=== PATIENT | female | born 1975 | race Caucasian/White ===

== ENCOUNTER 2022-08-22 12:53 | Emergency (ER) | payer MEDICAID, OTHER, SELFPAY ==
--- NOTE | 2022-08-22 13:42 | ED.GENADULT ---
HPI - General Adult General Chief complaint: Allergic Reaction Stated complaint: rash quest allergic reaction Time Seen by Provider: 08/22/22 13:55 Source: patient and licensed life and health agent Mode of arrival: ambulatory Limitations: language barrier (Aspnet Developer used) History of Present Illness HPI narrative: This is a 47-year-old female, with no known past medical history, presenting to the emergency department for evaluation of itchy rash, arms and back x1 month. Patient states that she has tried changing lotions, soaps, laundry detergents without any relief. She states that the itching worsens at night. Denies any new medications or foods. Denies any difficulty breathing or swallowing. No fevers, chills, chest pain, abdominal pain, nausea, vomiting, or diarrhea. No other complaints or concerns at this time. MD complaint: Rash Onset (ago): month(s) Relieving factors: none Exacerbating factors: none Associated symptoms: rash Treatments prior to arrival: none Related Data Previous Rx's Medication Instructions Recorded diphenhydramine HCl 25 mg capsule 25 mg PO BEDTIME PRN itching #10 08/22/22 (Benadryl) caps hydrocortisone 1 % lotion 1 appl topical BID PRN itching 08/22/22 (Cortisone (hydrocortisone)) #120 mL prednisone 20 mg tablet 20 mg PO DAILY 5 days #5 tabs 08/22/22 Allergies Allergy/AdvReac Type Severity Reaction Status Date / Time pork derived (porcine) Allergy Rash Verified 08/22/22 13:57 Pork/Porcine Containing Allergy Rash Verified 08/22/22 13:57 Products shrimp Allergy Rash Verified 08/22/22 13:57 Review of Systems Review of Systems: Yes all other systems are reviewed and are negative Constitutional: Constitutional: Reports as per [facility] Social History Social History Advance Directives: No Advance Directives Information Provided: No Physical Exam ED Vital Signs: Vital Signs - 24 hr 08/22/22 13:55 Pulse Rate 70 Respiratory Rate 18 Blood Pressure 118/68 Pulse Oximetry 100 Oxygen Delivery Method Room Air BMI result Body Mass Index 23.9 Const General: cooperative, comfortable and no acute distress Orientation/consciousness: patient oriented x3 Limitations: no limitations HENMT Head: Yes normal to inspection, Yes normocephalic and Yes atraumatic Ears: hearing grossly normal bilaterally General nose exam: Normal external nose present Face and sinus: Yes normal facial exam Mouth: Normal oral and palatal mucosa present, oropharynx normal and moist mucous membranes Throat: Yes posterior oropharynx normal Eyes General: appearance normal, both eyes and all related structures Eyelids: Yes eyelids normal Conjunctivae: conjunctivae normal Sclerae: sclerae normal Pupils: Equal, round and reactive pupils present EOM: EOMs intact bilaterally Neck Neck: Yes normal visual inspection, Yes full ROM and Yes no lymphadenopathy Lymphatic: no lymphadenopathy noted Chest Chest palpation & inspection: normal inspection of the chest Resp Effort & Inspection: normal respiratory effort and able to speak in complete sentences Auscultation: clear to auscultation bilaterally, no crackles, no rales, no rhonchi and no wheezes Cardio Rate: regular rate Rhythm: regular rhythm Heart sounds: S1 normal heart sound present and S2 normal heart sound present GI Inspection: Yes normal to inspection Skin Other: Dry skin with multiple papules and wheals with excoriations noted to bilateral arms and back. No surrounding erythema, induration, or warmth. Trauma: no lacerations or abrasions Wounds: no wounds Neuro General: patient oriented x3 and moves all extremities Cranial nerves: Yes Equal, round and reactive pupils present Extrem General: Yes normal to inspection Right upper extremity: normal to inspection Left upper extremity: normal to inspection Right lower extremity: normal to inspection Left lower extremity: normal to inspection Course Course Course Narrative: RME: 39 yo female w/ no sig PMHx, c/o diffuse skin rash and itching x4 weeks. Admits similar rash as a child in [facility]. Has tried Benadryl, Claritin and Sarna lotion at home without relief. No changes to foods/ detergents/ lotions. Appears psoriasis/ dermatitis. Will need full eval. Full HPI, ROS and PE to be performed by primary ED provider. Medical Decision Making Medical Decision Making MDM Narrative: This is a 47-year-old female presenting to the emergency department for evaluation of itchy rash x1 month. On examination, patient has dry skin, papules and scattered wheals noted to bilateral arms and upper back. No surrounding erythema or warmth. Symptoms consistent with dry skin/allergic dermatitis. Advised to apply hydrating lotion to arms, also given cortisone lotion and prednisone. Educated the importance of returning if any new or worsening symptoms occur. Patient understands and agrees with plan. Vital signs within normal limits. Lungs clear to auscultation bilaterally, no rash noted to the mouth, tolerating oral secretions well without difficulty. Patient stable for discharge. Differential Diagnosis Differential Diagnoses: The differential diagnosis associated with the presentation includes Contact dermatitis, allergic dermatitis, atopic dermatitis, cellulitis Discharge Plan Discharge Clinical Impression: Contact dermatitis and eczema Patient Disposition: Home, Self-Care Instructions: Contact Dermatitis (ED) Additional Instructions: Please take prescribed medications as directed. Please be aware that Benadryl can cause sleepiness, take this at bedtime as needed for itching. It does appear that your skin is very dry, make sure that you are using a very sensitive and hydrating lotion such as Eucerin. If any new or worsening symptoms occur including but not limited to worsening itching, difficulty swallowing or breathing, please return for re-evaluation. Follow up with primary care physician (call [facility]). If your symptoms persist, you may follow up with the snack foods mixer operator, call to make an appointment. [place] los medicamentos recetados seg?n las indicaciones. Tenga en cuenta que Benadryl puede causar somnolencia, t?funez a la hora de acostarse seg?n sea necesario para la picaz?n. Parece que tu piel est? muy seca, aseg?rate de estar usando connie loci?n muy sensible e hidratante opal Eucerin. Si se presentan s?ntomas nuevos o que empeoran, incluidos, entre otros, el empeoramiento de la picaz?n, la dificultad para tragar o respirar, regrese para connie nueva evaluaci?n. [place] un seguimiento con un m?dico de atenci?n primaria (llame al [facility]). Si pal s?ntomas persisten, ?lla puede hacer un seguimiento con el alerg?logo, llame para hacer connie nicanor. Prescriptions: New prednisone 20 mg tablet 20 mg PO DAILY 5 Days Qty: 5 0RF hydrocortisone [Cortisone (hydrocortisone)] 1 % lotion 1 appl topical BID PRN (Reason: itching) Qty: 120 0RF diphenhydramine HCl [Benadryl] 25 mg capsule 25 mg PO BEDTIME PRN (Reason: itching) Qty: 10 0RF Referrals: Rosalinda Mason MD [Physician] -
[2022-08-22 13:55] VITALS: BP 118/68; PULSE 70; RESP 18; O2SAT 100; BMI 23.9
== END 2022-08-22 15:43 | disposition home or self-care (01) ==
PROVIDERS: Emergency Provider Emergency Medicine
DX: L50.0 Allergic urticaria (principal); Z79.899 Other long term (current) drug therapy
CPT/HCPCS: 99282; 99283

== ENCOUNTER 2022-10-14 15:44 | Outpatient (AMB) | payer OTHER, SELFPAY ==
[2022-10-14 15:47] VITALS: BP 110/68; PULSE 67; O2SAT 99; BMI 24.0
--- NOTE | 2022-10-14 15:47 | MHC.PC.OV ---
Vital Signs 10/14/22 15:47 Height 5 ft 4 in Weight 140 lb BMI 24.0 BP 110/68 Blood Pressure Location Lt brachial Position Sitting Pulse 67 Pulse Source Pulse Oximeter Temp Source Skin Pulse Oximetry (%) 99 Oxygen Delivery Method Room Air Intake Visit Reasons: New Patient Intake Note: Patient is a new patient here to establish care Follow Up Clerk Required: Yes Follow Up Clerk Language: Estonian Allergies pork derived (porcine) Allergy (Verified 10/14/22 16:25) Rash Pork/Porcine Containing Products Allergy (Verified 10/14/22 16:25) Rash shrimp Allergy (Verified 10/14/22 16:25) Rash Medication List - Last Reconciled 10/14/22 by TEJAS Abdul No Known Home Meds Tobacco use date assessed: 10/14/22 Dental Screening Dental Screen Date: 10/14/22 Did you have a dental visit in the last 12 months?: No Did you have a dental problem in the last 6 months where you did not have access to dental care?: No HPI New Patient HPI Details Patient is a 47-year-old female who presents today to establish care. Patient moved to [facility] from [facility] recently where she had PCP. Medical history significant for seasonal allergies - reports was seeing mounted police officer and receiving treatment. Patient requested referral for an eye exam. Patient reports that she started with rash couple months ago - she thinks it is after going into the [facility]. Patient was seen in the emergency department couple months ago and she was started on prednisone and steroidal cream with improvement in rash, although when patient finished treatment rash came back again. She reports rash is itchy, reports rash on her right leg and left arm. No shortness of breath or chest pain. No fever or chills. Was thinking rash was caused by her shampoo or body wash, reports switching brands still with this rash. Patient is a Estonian-speaking and [employer] was helping with interpretation. [facility] Medical History Hematoma Family History Mother No problems noted. Father Diabetes Social History Housing: House Patient Tobacco Use Status: Never used Tobacco service: No Current occupational status: unemployed Cognitive needs: No Hearing needs: No Vision needs: No Questionnaire PHQ-9 Over the last 2 weeks, how often have you been bothered by any of the following problems? 1. Little interest or pleasure in doing things: not at all 2. Feeling down, depressed, or hopeless: not at all 3. Trouble falling or staying asleep, or sleeping too much: not at all 4. Feeling tired or having little energy: not at all 5. Poor appetite or overeating: not at all 6. Feeling bad about yourself - or that you are a failure or have let yourself or your family down: not at all 7. Trouble concentrating on things, such as reading the newspaper or watching television: not at all 8. Moving or speaking so slowly that other people could have noticed. Or the opposite - being so fidgety or restless that you have been moving around a lot more than usual: not at all 9. Thoughts that you would be better off or of hurting yourself in some way: not at all Total score: 0 Depression Screening Interpretation: Negative 08960 - PHQ-9 Billing: Yes Source: Developed by Drs. Oswald Rivera, Archana Lopez, Bassem Wen and colleagues, with an educational shanika from [employer]. Thrive Questionnaire Date Thrive assessed: 10/14/22 I am a: Patient What is your living situation today?: I have a steady place to live Within the past 12 months, did the food you bought not last and you didn't have the money to get more?: Never true Within the past 12 months, did you worry whether your food would run out before you got money to buy more?: Never true Do you have trouble paying for medicines?: No Do you have trouble getting transportation to medical appointments?: No Do you have trouble paying your heating and electricity bill?: No Do you have trouble taking care of your child, family member or friend?: No Do you have trouble with day-to-day activities such as bathing, preparing meals, shopping, managing finances, etc.?: No Are you currently unemployed and looking for a job?: No Are you interested in more education?: No Currently or been in a relationship where the following occur: no concerns reported AUDIT C Alcohol Use Questionnaire (AUDIT-C) 1. How often do you have a drink containing alcohol?: Never 3. How often do you have six or more drinks on one occasion?: Never Total Score: 0 Score Reviewed/Action Taken: No MIGNON-7 AMB Questionnaire MIGNON-7 Date MIGNON - 7 assessed: 10/14/22 Feeling nervous, anxious, or on edge: 0 = Not at all Not being able to stop or control worryin = Not at all Worrying too much about different things: 0 = Not at all Trouble relaxin = Not at all Being so restless that it is hard to sit still: 0 = Not at all Becoming easily annoyed or irritable: 0 = Not at all Feeling afraid as if something awful might happen: 0 = Not at all Total MIGNON-7 score (0-4 normal; 5-9 mild; 10-14 moderate; 15-21 severe): 0 Source: Developed by Drs. Oswald Rivera, Archana Lopez, Bassem Wen and colleagues, with an educational shanika from [employer]. MIGNON-7 Assessment Billing MIGNON-7 Assessment Tool: MIGNON-7 Assessment 94704 Review of Systems Const Denies body aches, Denies chills, Denies fever(s) and Denies headache(s) Eyes Denies change in vision ENT Denies dizziness, Denies otalgia, Denies headache(s), Denies nasal discharge, Denies sinus pain and Denies sore throat Card Denies chest pain, Denies edema, Denies lightheadedness and Denies dyspnea Resp Denies cough, Denies dyspnea and Denies wheezing GI Denies abdominal pain, Denies constipation, Denies diarrhea, Denies nausea and Denies vomiting Denies dysuria Musc Denies myalgias Skin/Breast Reports rash Neuro Denies dizziness and Denies headache(s) Aller/Immun Denies wheezing Physical exam (Primary Care) Vital Signs: Last Vital Signs Pulse 67 10/14/22 15:47 BP 110/68 10/14/22 15:47 Pulse Ox 99 10/14/22 15:47 Oxygen Delivery Method Room Air 10/14/22 15:47 BMI result Body Mass Index 24.0 Tobacco/Smoking Status: Tobacco use Status Tobacco use date assessed 10/14/22 10/14/22 15:48 Patient Tobacco Use Status Never used Tobacco 10/14/22 16:19 PHQ-9: PHQ-9 Score PHQ-9: Total score 0 10/14/22 16:19 Depression Screening Interpretation: Negative Thrive Assessment: Date of Thrive Assessment Date Thrive assessed 10/14/22 10/14/22 15:48 Currently or been in a relationship where the following occur: no concerns reported Const General: cooperative and no acute distress Orientation/consciousness: patient oriented x3 HENMT Head: Yes normocephalic and Yes atraumatic Ears: TM's normal bilaterally Face and sinus: Yes sinuses nontender Mouth: oropharynx normal and moist mucous membranes Throat: Yes posterior oropharynx normal Eyes General: appearance normal, both eyes and all related structures Pupils: Equal, round and reactive pupils present EOM: EOMs intact bilaterally Neck Neck: Yes normal visual inspection, Yes full ROM and Yes no lymphadenopathy Thyroid: Thyroid normal Resp Effort & Inspection: normal respiratory effort and able to speak in complete sentences Auscultation: clear to auscultation bilaterally, no crackles, no rales, no rhonchi and no wheezes Cardio Rate: regular rate Rhythm: regular rhythm Heart sounds: S1 normal heart sound present, S2 normal heart sound present and no murmurs GI Palpation (GI): Soft to palpation, not firm, nontender, no guarding, not rigid and no hepatosplenomegaly Auscultation: normal bowel sounds General: No CVA tenderness Back/Spine/Pelvis Back: No CVA tenderness Skin Other: Right inner thigh and left AC arm with moderate amount of circular erythematous areas, patient reports pruritus, no signs of infection noted, rash with mild dryness Neuro General: patient oriented x3 Cranial nerves: Yes Equal, round and reactive pupils present Gait exam (Neuro): Normal gait present Extrem General: Yes full ROM and No edema Assessment and Plan Assessment & Plan (1) Eye exam, routine: Code(s): Z01.00 - Encounter for examination of eyes and vision without abnormal findings (2) Seasonal allergies: Code(s): J30.2 - Other seasonal allergic rhinitis Plan: Start Zyrtec 10 mg daily p.r.n. Lapper referral-patient reports receiving treatment from mounted police officer in the past (3) Encounter to establish care: Code(s): Z76.89 - Persons encountering health services in other specified circumstances Plan: Patient presents to establish care Blood work ordered (4) Rash: Code(s): R21 - Rash and other nonspecific skin eruption Plan: Right inner thigh and left AC arm with moderate amount of circular erythematous areas, patient reports pruritus, no signs of infection noted, rash with mild dryness Start prednisone taper and triamcinolone cream daily for 2 weeks - do not use cream on face Notify office if no improvement after treatment Lapper referral Plan Follow-up in 4 months for PE and labs Orders: Orders Vitamin D 25-OH Total Today Z - Persons encountering health services in other specified circumstances Vitamin B12 and Folate Today Z - Persons encountering health services in other specified circumstances TSH reflex Free T4 Today - Persons encountering health services in other specified circumstances Lipid Panel Today - Persons encountering health services in other specified circumstances Comprehensive [place]. Panel Fast Today - Persons encountering health services in other specified circumstances Complete Blood Count Auto Diff Today - Persons encountering health services in other specified circumstances Referrals Allergy & Immunology Referral J30.2 - Other seasonal allergic rhinitis, R21 - Rash and other nonspecific skin eruption Ophthalmology Referral Z01.00 - Encounter for examination of eyes and vision without abnormal findings Medications: New cetirizine (Zyrtec) 10 mg PO DAILY PRN 30 tabs 0RF allergy symptoms J30.2 - Other seasonal allergic rhinitis prednisone Take 4 tablets for 3 days then, Take 3 tablets for 3 days then, Take 2 tablets 3 days then, Take 1 tablet 3 days and stop 10 mg PO DAILY 30 tabs 0RF R21 - Rash and other nonspecific skin eruption triamcinolone acetonide 0.1% 1 appl topical DAILY 14 days 15 grams 0RF R21 - Rash and other nonspecific skin eruption Coding Level of Care Code New Pt Level 3 (25626) Diagnoses Eye exam, routine Z01.00 Seasonal allergies J30.2 Encounter to establish care Z76. Rash R21 Additional Codes MIGNON-7 Assessment Billing - MIGNON-7 Assessment Tool: MIGNON-7 Assessment 29486 ([id number])
== END 2022-10-14 16:59 | disposition home or self-care (01) ==
PROVIDERS: Visit Provider Nurse Practitioner Family
DX: Z01.00 Encounter for examination of eyes and vision without abnormal findings (principal); J30.2 Other seasonal allergic rhinitis; Z76.89 Persons encountering health services in other specified circumstances; R21 Rash and other nonspecific skin eruption
CPT/HCPCS: 99203

== ENCOUNTER 2022-10-18 10:37 | Outpatient (REF) | payer MEDICAID, OTHER, SELFPAY ==
[2022-10-18 10:50] LABS: MANUAL DIFF FLAG NO
[2022-10-18 10:56] LABS: Basophils Absolute Auto 0.1 X10*3/uL (0.0-0.2); Basophils Percent Auto 0.5 % (0-2); Eosinophils Absolute Auto 0.3 X10*3/uL (0.0-0.4); Eosinophils Percent Auto 2.8 % (0-4); Hematocrit 34.3 % (37.0-47.0); Hemoglobin 11.2 g/dl (12.0-16.0); Imm Gran Abs Auto 0.04 X10*3/uL (0.00-0.03); Imm Gran Pct Auto 0.4 % (0.0-0.4); Lymphocytes Absolute Auto 4.1 X10*3/uL (1.2-4.9); Lymphocytes Percent Auto 43.3 % (20-40); Mean Corpuscular HGB Conc 32.7 g/dl (31.0-35.0); Mean Corpuscular Hemoglobin 27.2 pg (27.0-33.0); Mean Corpuscular Volume 83.3 fL (80.0-98.0); Mean Platelet Volume 9.2 fL (9.4-12.3); Monocytes Absolute Auto 0.6 X10*3/uL (0.1-1.2); Monocytes Percent Auto 6.4 % (2-11); Neutrophils Absolute Auto 4.4 x10*3/uL (2.0-8.3); Neutrophils Percent Auto 46.6 % (45-73); Platelet Count 326 X10*3/uL (160-400); Red Blood Count 4.12 X10*6/uL (4.20-5.50); Red Cell Distribution Width 15.3 % (11.0-16.0); White Blood Count 9.4 X10*3/uL (4.8-10.8)
[2022-10-18 11:47] LABS: Alanine Aminotransferase 11 U/L (0-31); Albumin Level 4.2 g/dL (3.5-5.0); Alkaline Phosphatase 63 U/L (39-117); Anion Gap 11 (12-20); Aspartate Amino Transferase 12 U/L (5-31); Bilirubin Total 0.5 mg/dL (0.0-1.0); Blood Urea Nitrogen 13 mg/dL (9-16); Calcium 9.1 mg/dL (8.4-10.2); Carbon Dioxide 28 mmol/L (22-29); Chloride 105 mmol/L (96-108); Cholesterol 207 mg/dL (<200); Estimated Glomerular Filt Rate > 60; Glucose Fasting 80 mg/dL (60-99); HDL Cholesterol 49 mg/dL (>40); LDL Cholesterol Calculated 126 mg/dL (<100); Potassium 3.4 mmol/L (3.3-5.1); Sodium 141 mmol/L (135-145); Total Protein 7.5 g/dL (6.5-8.0); Triglycerides 161 mg/dL (<150)
[2022-10-18 12:04] LABS: TSH reflex Free T4 2.96 uIU/mL (0.32-4.0); Vitamin D 25-OH Total 25.6 ng/mL (>30)
[2022-10-18 12:39] LABS: Folate 13.9 ng/mL (> or = 4.0); Vitamin B12 504 pg/mL (200-900)
== END 2022-10-18 10:38 | disposition home or self-care (01) ==
LOC: HO.LAB 10:37
PROVIDERS: Visit Provider Nurse Practitioner Family
DX: Z76.89 Persons encountering health services in other specified circumstances (principal)
CPT/HCPCS: 36415; 80053; 80061; 82306; 82607; 82746; 84443; 85025

== ENCOUNTER 2023-02-16 13:08 | Outpatient (AMB) | payer OTHER, SELFPAY ==
--- NOTE | 2023-02-16 13:18 | MHC.PC.OV ---
Vital Signs 02/16/23 13:23 Height 5 ft 4 in Weight 143 lb 2 oz BMI 24.6 BP 120/66 Blood Pressure Location Lt brachial Position Sitting Pulse 98 Pulse Source Pulse Oximeter Pulse Oximetry (%) 99 Oxygen Delivery Method Room Air Intake Visit Reasons: pe Intake Note: Patient is here today for a physical. Demolition Engineer Required: Yes Demolition Engineer Language: Community Relations Police Lieutenant Name: Raudel ([id number]) Information Interpreted: non-clinical & clinical Piano Mover: Not Required per policy Accompanied by: Self / Same As Patient Allergies pork derived (porcine) Allergy (Verified 02/16/23 14:06) Rash Pork/Porcine Containing Products Allergy (Verified 02/16/23 14:06) Rash shrimp Allergy (Verified 02/16/23 14:06) Rash Medication List - Last Reconciled 02/16/23 by Kg Francis MD cetirizine (Zyrtec) 10 mg PO DAILY PRN cholecalciferol (vitamin D3) 25 mcg PO DAILY Tobacco use date assessed: 02/16/23 Dental Screening Dental Screen Date: 02/16/23 Did you have a dental visit in the last 12 months?: No Did you have a dental problem in the last 6 months where you did not have access to dental care?: No Was dental information given to patient?: Patient declined HPI pe HPI Details 47-year-old female presents to the office requesting a physical. Patient speaks Persian only and an customer service cashier via the iPad was used. [facility] Medical History Hematoma Surgical History History of tubal ligation Family History Mother No problems noted. Father Diabetes Social History Housing: House Alcohol intake: never Patient Tobacco Use Status: Never used Tobacco e-Cigarette/Vaping Use: Never Used Second Hand Smoke Exposure: No service: No Current occupational status: unemployed Cognitive needs: No Hearing needs: No Vision needs: No Questionnaire PHQ-9 Over the last 2 weeks, how often have you been bothered by any of the following problems? 1. Little interest or pleasure in doing things: not at all 2. Feeling down, depressed, or hopeless: not at all 3. Trouble falling or staying asleep, or sleeping too much: not at all 4. Feeling tired or having little energy: not at all 5. Poor appetite or overeating: not at all 6. Feeling bad about yourself - or that you are a failure or have let yourself or your family down: not at all 7. Trouble concentrating on things, such as reading the newspaper or watching television: not at all 8. Moving or speaking so slowly that other people could have noticed. Or the opposite - being so fidgety or restless that you have been moving around a lot more than usual: not at all 9. Thoughts that you would be better off or of hurting yourself in some way: not at all Total score: 0 Depression Screening Interpretation: Negative Depression Screening Done: Yes Source: Developed by Drs. Oswald Rivera, Archana Lopez, Bassem Wen and colleagues, with an educational shanika from [employer]. Thrive Questionnaire Date Thrive assessed: 02/16/23 I am a: Patient What is your living situation today?: I have a steady place to live Within the past 12 months, did the food you bought not last and you didn't have the money to get more?: Never true Within the past 12 months, did you worry whether your food would run out before you got money to buy more?: Never true Do you have trouble paying for medicines?: No Do you have trouble getting transportation to medical appointments?: No Do you have trouble paying your heating and electricity bill?: No Do you have trouble taking care of your child, family member or friend?: No Do you have trouble with day-to-day activities such as bathing, preparing meals, shopping, managing finances, etc.?: No Are you currently unemployed and looking for a job?: No Are you interested in more education?: No Currently or been in a relationship where the following occur: no concerns reported AUDIT C Alcohol Use Questionnaire (AUDIT-C) 1. How often do you have a drink containing alcohol?: Never Total Score: 0 MIGNON-7 AMB Questionnaire MIGNON-7 Date MIGNON - 7 assessed: 02/16/23 Feeling nervous, anxious, or on edge: 0 = Not at all Not being able to stop or control worryin = Not at all Worrying too much about different things: 0 = Not at all Trouble relaxin = Not at all Being so restless that it is hard to sit still: 0 = Not at all Becoming easily annoyed or irritable: 0 = Not at all Feeling afraid as if something awful might happen: 0 = Not at all Total MIGNON-7 score (0-4 normal; 5-9 mild; 10-14 moderate; 15-21 severe): 0 Source: Developed by Drs. Oswald Rivera, Archana Lopez, Bassem Wen and colleagues, with an educational shanika from [employer]. Physical exam (Primary Care) Vital Signs: Last Vital Signs Pulse 98 02/16/23 13:23 BP 120/66 02/16/23 13:23 Pulse Ox 99 02/16/23 13:23 Oxygen Delivery Method Room Air 02/16/23 13:23 BMI result Body Mass Index 24.6 Tobacco/Smoking Status: Tobacco use Status Tobacco use date assessed 02/16/23 02/16/23 13:34 Patient Tobacco Use Status Never used Tobacco 02/16/23 13:34 e-Cigarette/Vaping Use Never Used 02/16/23 13:34 PHQ-9: PHQ-9 Score PHQ-9: Total score 0 02/16/23 13:34 Depression Screening Interpretation: Negative Thrive Assessment: Date of Thrive Assessment Date Thrive assessed 02/16/23 02/16/23 13:34 Currently or been in a relationship where the following occur: no concerns reported Const General: cooperative and healthy appearing Nutritional Appearance: well nourished Orientation/consciousness: patient oriented x3 Limitations: no limitations HENMT Head: Yes normal to inspection Eyes General: appearance normal, both eyes and all related structures Neck Neck: Yes normal visual inspection Chest Chest palpation & inspection: normal palpation of entire chest wall Resp Effort & Inspection: normal respiratory effort Neuro General: patient oriented x3 Assessment and Plan Assessment & Plan (1) Annual physical exam: Code(s): Z00.00 - Encounter for general adult medical examination without abnormal findings Plan: Blood work reviewed. Mild anemia. TSH is normal. Up-to-date on her mammogram. Coding Level of Care Code Est Pt Prev Care 40-64y(32034) Diagnoses Annual physical exam Z00.00
[2023-02-16 13:23] VITALS: BP 120/66; PULSE 98; O2SAT 99; BMI 24.6
== END 2023-02-16 13:57 | disposition home or self-care (01) ==
PROVIDERS: PCP Internal Medicine; Visit Provider Internal Medicine
DX: Z00.00 Encounter for general adult medical examination without abnormal findings (principal)
CPT/HCPCS: 99396

== ENCOUNTER 2023-03-16 09:27 | Outpatient (REF) | payer MEDICAID, OTHER, SELFPAY ==
[2023-03-16 10:54] LABS: Iron 30 mcg/dL (30-160); Percent Iron Saturation 9 % (15-50); Total Iron Binding Capacity 320 mcg/dL (228-428); Unsaturated Iron Binding 290 ug/dL
[2023-03-16 11:04] LABS: Vitamin D 25-OH Total 27.6 ng/mL (>30)
== END 2023-03-16 09:28 | disposition home or self-care (01) ==
LOC: HO.LAB 09:27
PROVIDERS: Visit Provider Nurse Practitioner Family
DX: D64.9 Anemia, unspecified (principal); E55.9 Vitamin D deficiency, unspecified
CPT/HCPCS: 36415; 82306; 83540

== ENCOUNTER 2023-04-27 14:40 | Outpatient (AMB) | payer OTHER, SELFPAY ==
--- NOTE | 2023-04-27 14:56 | MHC.PC.OV ---
Vital Signs 04/27/23 14:58 Height 5 ft 4 in Weight 141 lb BMI 24.2 BP 118/76 Blood Pressure Location Lt brachial Position Sitting Intake Visit Reasons: Iron Deficiency Intake Note: Patient is here to follow up on Iron Deficiency and lab results Supervisor Ski Production Required: Yes Supervisor Ski Production Language: Real Estate Financial Analyst Name: Enedina ([id number]) Information Interpreted: non-clinical & clinical Service Desk Team Lead: Not Required per policy Accompanied by: Self / Same As Patient Allergies pork derived (porcine) Allergy (Verified 04/29/23 06:35) Rash Pork/Porcine Containing Products Allergy (Verified 04/29/23 06:35) Rash shrimp Allergy (Verified 04/29/23 06:35) Rash Medication List - Last Reconciled 04/29/23 by Kg Francis MD ammonium lactate 12% 1 appl topical DAILY cetirizine (Zyrtec) 10 mg PO DAILY PRN cholecalciferol (vitamin D3) 25 mcg PO DAILY Tobacco use date assessed: 04/27/23 Dental Screening Dental Screen Date: 04/27/23 Did you have a dental visit in the last 12 months?: Yes Did you have a dental problem in the last 6 months where you did not have access to dental care?: No Was dental information given to patient?: Patient has dentist HPI Iron Deficiency HPI Details 47-year-old female presents to the office to discuss her chronic medical conditions. Patient speaks Malaysian only and an diplomatic interpreter/translator through the I pad was utilized. Patient would like to know the results of her blood work. Continues to have her periods regularly. Of late they are becoming irregular. Heavy for a few days. Reports no symptoms of fatigue. [facility] Medical History (Updated 04/29/23 @ 06:37 by Kg Francis MD) Iron deficiency anemia Hematoma Surgical History History of tubal ligation Family History Mother No problems noted. Father Diabetes Social History Housing: House Alcohol intake: never Patient Tobacco Use Status: Never used Tobacco e-Cigarette/Vaping Use: Never Used Second Hand Smoke Exposure: No service: No Current occupational status: unemployed Cognitive needs: No Hearing needs: No Vision needs: Yes (Glasses) Questionnaire Thrive Questionnaire Date Thrive assessed: 02/16/23 Currently or been in a relationship where the following occur: no concerns reported THRIVE Score: 0 MIGNON-7 AMB Questionnaire MIGNON-7 Date MIGNON - 7 assessed: 02/16/23 Source: Developed by Drs. Oswald Rivera, Archana Lopez, Bassem Wen and colleagues, with an educational shanika from [employer]. Physical exam (Primary Care) Vital Signs: Last Vital Signs BP 118/76 04/27/23 14:58 Care Plan Goal for BP management: Blood pressure is in range. BMI result Body Mass Index 24.2 Tobacco/Smoking Status: Tobacco use Status Tobacco use date assessed 04/27/23 04/27/23 14:57 Patient Tobacco Use Status Never used Tobacco 04/27/23 14:57 e-Cigarette/Vaping Use Never Used 04/27/23 14:57 Thrive Assessment: Date of Thrive Assessment Date Thrive assessed 02/16/23 04/27/23 14:57 Currently or been in a relationship where the following occur: no concerns reported Const General: cooperative and healthy appearing Nutritional Appearance: well nourished Orientation/consciousness: patient oriented x3 Limitations: no limitations HENMT Head: Yes normal to inspection Eyes General: appearance normal, both eyes and all related structures Neck Neck: Yes normal visual inspection Chest Chest palpation & inspection: normal palpation of entire chest wall Resp Effort & Inspection: normal respiratory effort Neuro General: patient oriented x3 Assessment and Plan Assessment & Plan (1) Iron deficiency anemia: Code(s): D50.9 - Iron deficiency anemia, unspecified Plan: Blood work reviewed with patient. She has iron deficiency probably due to menstrual blood loss. However she is over 45 and screening colonoscopy was offered. Patient declined the procedure at the moment. Continue iron supplementation. Coding Level of Care Code Est Pt Level 3 (96728) Diagnoses Iron deficiency anemia D50.9
[2023-04-27 14:58] VITALS: BP 118/76; BMI 24.2
== END 2023-04-27 16:19 | disposition home or self-care (01) ==
PROVIDERS: PCP Internal Medicine; Visit Provider Internal Medicine
DX: D50.9 Iron deficiency anemia, unspecified (principal)
CPT/HCPCS: 99213

== ENCOUNTER 2024-03-11 13:06 | Emergency (ER) | payer OTHER, SELFPAY ==
--- NOTE | ~2024-03-11 | XR_ITS ---
EXAMINATION: XR LUMBOSACRAL SPINE CLINICAL INFORMATION: injury COMPARISON: None available. TECHNIQUE: Three views of the lumbosacral spine. FINDINGS: No acute cortical disruption or malalignment. No lytic or blastic lesions. XR/XR lumbar spine 2-3V IMPRESSION: No acute fracture or listhesis. Electronically signed by: Raudel Cortes MD 03/11/2024 03:12 PM [facility]
--- NOTE | ~2024-03-11 | CT_ITS ---
EXAMINATION: CT CERVICAL SPINE WITHOUT CONTRAST CLINICAL INFORMATION: Neck pain, rule out fracture. COMPARISON: None available. TECHNIQUE: Spiral CT of the cervical spine performed in axial plane without IV contrast. Sagittal, coronal, and thin section axial reformatted images constructed from the axial data set. This CT examination was performed using dose optimization techniques as appropriate, variously including the following: *Automated exposure control *Adjustment of mA and/or kV according to patient size (this includes techniques or standardized protocols for targeted exams where dose is matched to indication/reason for exam; i.e. extremities or head) *Use of iterative reconstruction technique FINDINGS: No scoliosis. Normal lordosis. No fracture, compression deformity, traumatic subluxation, or suspicious bone lesion. Normal sagittal alignment. Disc spaces preserved. Facets normally aligned bilaterally. Craniocervical junction, and C1-2 articulation are intact and normally aligned. No evidence of large disc herniation or canal stenosis allowing for noncontrast CT. No prevertebral soft tissue swelling or abnormality. No soft tissue mass or abnormal lymph nodes. Normal thyroid gland. Imaged lung apices are clear. Imaged superior mediastinal structures are normal. CT/CT cervical spine wo IV con IMPRESSION: No CT evidence of acute cervical spine fracture or injury. Essentially normal exam. Fleischner guidelines were followed. Electronically signed by: Sriram Flores MD 03/11/2024 02:49 PM [facility]
[2024-03-11 14:13] VITALS: BP 123/73; PULSE 78; RESP 20; TEMP 36.7; O2SAT 100; BMI 27.7
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
[2024-03-11 17:14] VITALS: BP 123/73; PULSE 78; RESP 20; TEMP 36.7; O2SAT 100
== END 2024-03-11 17:14 | disposition home or self-care (01) ==
PROVIDERS: Emergency Provider Emergency Medicine; PCP Internal Medicine
DX: S39.012A Strain of muscle, fascia and tendon of lower back, initial encounter (principal); S13.4XXA Sprain of ligaments of cervical spine, initial encounter; M54.2 Cervicalgia; R51.9 Headache, unspecified; V43.62XA Car passenger injured in collision with other type car in traffic accident, initial encounter; Y93.9 Activity, unspecified; Y92.410 Unspecified street and highway as the place of occurrence of the external cause; Y99.8 Other external cause status
CPT/HCPCS: 72100; 72125; 99282; 99284

== ENCOUNTER → 2024-03-11 14:19 | Outpatient (BNV) | payer OTHER, SELFPAY | PROVIDERS: PCP Internal Medicine; Visit Provider Radiology Diagnostic Radiology | DX: M54.2 Cervicalgia (principal) | CPT/HCPCS: 72100; 72125 ==

== ENCOUNTER 2024-03-31 09:39 | Outpatient (AMB) | payer OTHER, SELFPAY ==
--- NOTE | 2024-03-31 09:40 | A.OFFPC_ITS ---
Vital Signs 03/31/24 09:41 Height 5 ft Blood Pressure Location Lt brachial Position Sitting Pulse Source Pulse Oximeter Temp Source Temporal Artery Scan Oxygen Delivery Method Room Air Intake Visit Reasons: PE Customer Service Attendant Required: Yes Customer Service Attendant Language: Supervisor Pipeline Maintenance Name: used tablet- Accompanied by: Self / Same As Patient Allergies pork derived (porcine) Allergy (Verified 03/31/24 09:42) Rash Pork/Porcine Containing Products Allergy (Verified 03/31/24 09:42) Rash shrimp Allergy (Verified 03/31/24 09:42) Rash Tobacco use date assessed: 03/31/24 Dental Screening Dental Screen Date: 03/31/24 Did you have a dental visit in the last 12 months?: Yes Did you have a dental problem in the last 6 months where you did not have access to dental care?: No Was dental information given to patient?: Patient has dentist [facility] Medical History Iron deficiency anemia Hematoma Surgical History History of tubal ligation Family History Mother No problems noted. Father Diabetes Social History Housing: House Alcohol intake: never Patient Tobacco Use Status: Never used Tobacco e-Cigarette/Vaping Use: Never Used Second Hand Smoke Exposure: No service: No Current occupational status: unemployed Cognitive needs: No Hearing needs: No Vision needs: Yes (Glasses) Questionnaire PHQ-9 Over the last 2 weeks, how often have you been bothered by any of the following problems? 1. Little interest or pleasure in doing things: not at all 2. Feeling down, depressed, or hopeless: not at all 3. Trouble falling or staying asleep, or sleeping too much: not at all 4. Feeling tired or having little energy: not at all 5. Poor appetite or overeating: not at all 6. Feeling bad about yourself - or that you are a failure or have let yourself or your family down: not at all 7. Trouble concentrating on things, such as reading the newspaper or watching television: not at all 8. Moving or speaking so slowly that other people could have noticed. Or the opposite - being so fidgety or restless that you have been moving around a lot more than usual: not at all 9. Thoughts that you would be better off or of hurting yourself in some way: not at all Total score: 0 Depression Screening Interpretation: Negative Depression Screening Done: Yes 83430 - PHQ-9 Billing: Yes Source: Developed by Drs. Oswald Rivera, Archana Lopez, Bassem Wen and colleagues, with an educational shanika from [employer]. Thrive Questionnaire Date Thrive assessed: 03/31/24 I am a: Patient What is your living situation today?: I have a steady place to live Within the past 12 months, did the food you bought not last and you didn't have the money to get more?: Never true Within the past 12 months, did you worry whether your food would run out before you got money to buy more?: Never true Do you have trouble paying for medicines?: No Do you have trouble getting transportation to medical appointments?: No Do you have trouble paying your heating and electricity bill?: No Do you have trouble taking care of your child, family member or friend?: No Do you have trouble with day-to-day activities such as bathing, preparing meals, shopping, managing finances, etc.?: No Are you currently unemployed and looking for a job?: No Are you interested in more education?: No Please select the resources that you would like help with: None Currently or been in a relationship where the following occur: No concerns reported THRIVE Score: 0 AUDIT C Alcohol Use Questionnaire (AUDIT-C) 1. How often do you have a drink containing alcohol?: Never 3. How often do you have six or more drinks on one occasion?: Never Total Score: 0 MIGNON-7 AMB Questionnaire MIGNON-7 Date MIGNON - 7 assessed: 03/31/24 Feeling nervous, anxious, or on edge: 0 = Not at all Not being able to stop or control worryin = Not at all Worrying too much about different things: 0 = Not at all Trouble relaxin = Not at all Being so restless that it is hard to sit still: 0 = Not at all Becoming easily annoyed or irritable: 0 = Not at all Feeling afraid as if something awful might happen: 0 = Not at all Total MIGNON-7 score (0-4 normal; 5-9 mild; 10-14 moderate; 15-21 severe): 0 Source: Developed by Drs. Oswald Rivera, Archana Lopez, Bassem Wen and colleagues, with an educational shanika from [employer]. MIGNON-7 Assessment Billing MIGNON-7 Assessment Tool: MIGNON-7 Assessment 14243 Physical exam (Primary Care) Tobacco/Smoking Status: Tobacco use Status Tobacco use date assessed 04/27/23 04/27/23 14:57 Patient Tobacco Use Status Never used Tobacco 04/27/23 14:57 e-Cigarette/Vaping Use Never Used 04/27/23 14:57 Depression Screening Interpretation: Negative Thrive Assessment: Date of Thrive Assessment Date Thrive assessed 02/16/23 04/27/23 14:57 Currently or been in a relationship where the following occur: No concerns reported Coding Additional Codes PHQ-9 - 93267 - PHQ-9 Billing: Yes ([id number]) MIGNON-7 Assessment Billing - MIGNON-7 Assessment Tool: MIGNON-7 Assessment 23580 ([id number])
[2024-03-31 09:41] VITALS: BP 100/70; PULSE 60; TEMP 36.2; O2SAT 100; BMI 27.6
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
== END 2024-03-31 10:11 | disposition home or self-care (01) ==
PROVIDERS: PCP Internal Medicine
DX: M54.2 Cervicalgia (principal); M54.50 Low back pain, unspecified; Z04.3 Encounter for examination and observation following other accident; V89.2XXD Person injured in unspecified motor-vehicle accident, traffic, subsequent encounter; R20.0 Anesthesia of skin; R20.2 Paresthesia of skin

== ENCOUNTER → 2024-03-31 09:39 | Outpatient (BNVA) | payer OTHER, SELFPAY | PROVIDERS: PCP Internal Medicine | DX: M54.2 Cervicalgia (principal); M54.50 Low back pain, unspecified; R20.0 Anesthesia of skin; R20.2 Paresthesia of skin; V89.2XXD Person injured in unspecified motor-vehicle accident, traffic, subsequent encounter | CPT/HCPCS: 96127 ==

== ENCOUNTER 2024-11-09 12:51 | Outpatient (AMB) | payer OTHER, SELFPAY ==
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
[2024-11-09 13:07] VITALS: BP 146/68; PULSE 80; TEMP 36.4; O2SAT 98; BMI 27.7
== END 2024-11-09 13:45 | disposition home or self-care (01) ==
LOC: HO.HMCH 12:51
PROVIDERS: PCP Internal Medicine; Visit Provider Internal Medicine
DX: M54.50 Low back pain, unspecified (principal); M54.2 Cervicalgia